=== PATIENT | male | born 1990 | race Caucasian/White ===

== ENCOUNTER 2020-08-16 09:56 | Day surgery (SDC) | payer MEDICAID ==
[~2020-08-16] VITALS: Ht 172.7 cm; Wt 190.9 kg
[2020-08-16 10:11] VITALS: BP 132/72
[2020-08-16] MEDS ORDERED: TOP100T PO (10:25)
[2020-08-16] MEDS ORDERED: PANT20TA18 PO (10:26)
[2020-08-16] MEDS ORDERED: ATOR40TA PO (10:27)
[2020-08-16] MEDS ORDERED: TRAZ-251 PO (10:27)
[2020-08-16] MEDS ORDERED: METH36TA22 PO (10:34)
[2020-08-16] MEDS ORDERED: DULO60CA65 PO (10:34)
[2020-08-16] MEDS ORDERED: GABA-530 PO (10:34)
[2020-08-16] MEDS ORDERED: FLUT16SP26 BOTHNARES (10:34)
[2020-08-16] MEDS ORDERED: ALBUTEROL (10:34)
[2020-08-16] MEDS ORDERED: METH36TA4 PO (11:01)
[2020-08-16] MEDS ORDERED: fentaNYL/PF 50MCG/1 ML 2ML syringe ONE (12:06)
[2020-08-16] MEDS ORDERED: LIDOcaine Viscous 15ml cup ONE (12:06)
[2020-08-16] MEDS ORDERED: MIDAZolam 5mg/5ml vial ONE (12:06)
[2020-08-16 12:26] VITALS: BP 109/60
[2020-08-16 12:36] VITALS: BP 111/56
[2020-08-16 12:46] VITALS: BP 153/89
[2020-08-16 12:56] VITALS: BP 137/55
== END 2020-08-16 13:40 | disposition home or self-care (01) ==
LOC: GI LAB 09:56
PROVIDERS: ATTEND Internal Medicine Gastroenterology
DX: R12 Heartburn (principal); K31.7 Polyp of stomach and duodenum; K44.9 Diaphragmatic hernia without obstruction or gangrene; K21.9 Gastro-esophageal reflux disease without esophagitis; Z79.899 Other long term (current) drug therapy
CPT/HCPCS: 43239; 43251; 99152; C1773; J2250; J3010; J7040; A4620

== ENCOUNTER 2020-08-26 13:53 | Day surgery (SDC) | payer MEDICAID ==
[~2020-08-26] VITALS: Ht 172.7 cm; Wt 190.9 kg
[~2020-08-26 13:53] MED LIST: ALBUTEROL; ATOR40TA PO; DULO60CA65 PO; FLUT16SP26 BOTHNARES; GABA-530 PO; METH36TA4 PO; PANT20TA18 PO; TOP100T PO; TRAZ-251 PO
[2020-08-26 14:34] VITALS: BP 155/96
[2020-08-26] MEDS ORDERED: LIDOcaine Viscous 15ml cup ONE (14:42)
[2020-08-26] MEDS ORDERED: fentaNYL/PF 50MCG/1 ML 2ML syringe ONE (14:42)
[2020-08-26] MEDS ORDERED: MIDAZolam 5mg/5ml vial ONE (14:42)
[2020-08-26 16:12] VITALS: BP 142/79
[2020-08-26 16:22] VITALS: BP 128/76
[2020-08-26 16:32] VITALS: BP 155/86
[2020-08-26 16:42] VITALS: BP 109/99
== END 2020-08-26 17:30 | disposition home or self-care (01) ==
LOC: GI LAB 13:53
PROVIDERS: ATTEND Internal Medicine Gastroenterology
DX: K31.89 Other diseases of stomach and duodenum (principal); I10 Essential (primary) hypertension; G47.30 Sleep apnea, unspecified; Z85.028 Personal history of other malignant neoplasm of stomach; Z87.19 Personal history of other diseases of the digestive system
CPT/HCPCS: 43236; 43239; 99152; J2250; J3010; J7040; 43243; 45381; A4620